=== PATIENT | female | born 1960 | race Caucasian/White ===

== ENCOUNTER 2017-01-21 11:26 | Observation (INO) ==
--- NOTE | 2017-01-21 12:24 | Emergency Department Note ---
Disposition Clinical Impression: Syncope and collapse Left thumb sprain Qualifiers: Encounter type: initial encounter Sprain of finger site: unspecified site Qualified Code(s): S63.602A - Unspecified sprain of left thumb, initial encounter Disposition: Admitted As Inpatient Condition: Good Time of Disposition: 13:53 General Adult HPI - General Chief complaint: ED Syncope Stated complaint: possible broken thumb Time Seen by Provider: 01/21/17 11:50 Source: patient Mode of arrival: ambulatory Limitations: no limitations Nursing Notes Reviewed: Yes Vital Signs Reviewed: Yes - History of Present Illness HPI Narrative: 56-year-old female history of Crohn's disease with resection presents with left thumb injury. Patient reports sustaining the left thumb injury yesterday 8 o' clock in the morning while sitting on the couch watching the news she had a cup of coffee when she awoke with coffee spilled on the floor and pain in her left thumb and a small laceration to the bridge of her nose. She had a total of 3 separate syncopal episodes most recent 1999 while laying in bed last night watching TV when passed out. She denies any chest pain, shortness of breath, nausea, vomiting or headache at that time. Denies any palpitations. Denies any history of syncope in the past. Denies any lightheadedness or positional changes that may have caused this. Denies any seizure history. These were all unwitnessed. She reports return of baseline when she awakens but is unaware of what occurred. She has been feeling more dizzy the past couple weeks which her family physician has been following with. She denies any history of cardiac ischemic disease, diabetes or any recent changes in medications. She admits to some left neck pain. Denies any anticoagulant or antiplatelet use. Patient has been more stress lately due to recent terminal diagnosis of her mother. She was recently enrolled in hospice is currently hospitalized. Pain Scale: 6 - Related Data Home Medications Medication Instructions Recorded Confirmed Adalimumab [Humira] 20 mg SQ Q2W 01/21/17 01/21/17 Cholecalciferol (Vitamin D3) 2,000 unit PO DAILY 01/21/17 01/21/17 [Vitamin D] FLUoxetine HCl [Prozac] 40 mg PO DAILY 01/21/17 01/21/17 Mercaptopurine [Purinethol] 50 mg PO DAILY 01/21/17 01/21/17 Omeprazole [PriLOSEC] 40 mg PO DAILY 01/21/17 01/21/17 Topiramate [Topamax] 100 mg PO DAILY 01/21/17 01/21/17 diazePAM [Valium] 10 mg PO TID PRN 01/21/17 01/21/17 Allergies Allergy/AdvReac Type Severity Reaction Status Date / Time infliximab [From Remicade] Allergy Anaphylaxis Verified 01/21/17 11:31 codeine AdvReac Vomiting Verified 01/21/17 11:31 All systems ED: reviewed and negative except as stated. Constitutional: Denies: fever, chills, weakness Cardiovascular: Reports: syncope. Denies: chest pain, palpitations, dyspnea on exertion, orthopnea Respiratory: Denies: cough, dyspnea Gastrointestinal: Denies: abdominal pain, nausea, vomiting Genitourinary: Denies: urgency, dysuria Musculoskeletal: Reports: neck pain. Denies: back pain Integumentary: Denies: rash, abrasion Neurological: Denies: headache, weakness, numbness Past Medical History - Past Medical History Attestation: Yes The following information was validated with the patient. Source: patient Medical history: Reports: arthritis, migraine, RA, other Surgical history: Reports: hysterectomy Psychiatric history: Reports: no psych history HUSBANDRY TECHNICIAN history: Reports: non-contributory - Social History Smoking Status: Current every day smoker Smokeless Tobacco Status: No Alcohol use: Reports: none Drug use: Reports: none Physical Exam - General Limitations: no limitations General appearance: alert, in no apparent distress - Head Head exam: atraumatic, normocephalic, normal inspection - Expanded Head Exam Head exam physicial: Present: abrasion (Along the bridge of the nose). Absent: raccoon eyes, Soares's sign, CSF rhinorrhea - Eye Eye exam: Present: normal appearance, PERRL, EOMI. Absent: scleral icterus - ENT ENT exam: normal exam, normal oropharynx, mucous membranes moist, TM's normal bilaterally - Neck Neck exam: Present: normal inspection, full ROM, trachea midline. Absent: meningismus - Expanded Neck Exam Neck exam focused ED: Present: paraspinal tenderness (Left). Absent: midline tenderness, anterior neck swelling - Chest Chest inspection: Present: normal inspection, symmetric chest wall rise. Absent : tenderness - Respiratory Respiratory exam: Present: normal lung sounds bilaterally. Absent: respiratory distress - Cardiovascular Cardiovascular exam: Present: regular rate, normal rhythm, normal heart sounds, other (No murmur on Valsalva). Absent: systolic murmur, diastolic murmur - Abdominal Exam Abdominal exam: Present: soft, Non-Tender, normal bowel sounds. Absent: tenderness, distention, guarding, rebound, rigidity - Expanded Upper Extremity Exam Shoulder exam: Present: normal inspection, full ROM. Absent: tenderness Arm exam: Present: normal inspection, full ROM. Absent: tenderness Elbow exam: Present: normal inspection, full ROM. Absent: tenderness Forearm/Wrist exam: Present: normal inspection, full ROM, pain with axial thumb loading. Absent: dislocation, tenderness over anatomical snuff box Hand exam: Present: normal inspection, full ROM, tenderness, swelling (Left base of the thumb). Absent: laceration, ecchymosis, deformity, dislocation, subungual hematoma Neuromotor exam: Normal: wrist extension, thumb opposition (pain), thumb IP flexion (pain), thumb adduction (pain), fingers 2-5 abduction Neurosensory exam: Normal: radial nerve, ulnar nerve, median nerve Vascular exam: Normal: capillary refill, radial pulse - Back Exam Back exam: Present: normal inspection, full ROM. Absent: tenderness, CVA tenderness (R), CVA tenderness (L) - Neurological Exam Neurological exam: Present: alert, oriented X3, CN II-XII intact, normal gait - Psychiatric Psychiatric exam: Present: normal affect, normal mood - Skin Skin exam: Present: warm, dry, intact, normal color Course Course Narrative: 56-year-old female presents with left thumb injury with episodes of syncope. Patient reports 3 syncopal episodes. Denies any prodromal symptoms such as lightheadedness, chest pain, shortness of breath, headache. Patient is currently asymptomatic at this time. No history of congestive heart failure. Patient is afebrile stable vital signs. She appears in no acute distress in his answer questions appropriately. Neurologic exam is normal without focal neural deficits. She does have a small laceration to the bridge of her nose. It does not require suture repair. No facial instability. TMs are normal. No obvious trauma along the face. There is mild left paraspinal tenderness no midline tenderness. Heart's regular rate and rhythm. No murmurs or auscultated at rest or with standing/valsalva. She has tenderness to the left thumb at the MCP. She has pain with axial loading. No snuffbox tenderness. She full range of motion to her thumb but is limited due to pain. Ulcers are equal bilaterally. Good capillary refill. Her symptoms do not suggest a seizure like etiology. BP normal. Will get basic blood work, EKG and x-ray of her left hand. Patient is in agreement with this plan. Tylenol for pain at this time. - Reevaluation(s) Reevaluation #1: Review of labs and imaging. No acute fracture. She continues to have tenderness along the MCP of the left thumb with swelling. No snuffbox tenderness. Will place an TICO wrap for comfort. Plan for admission for syncope unknown etiology. Will get a troponin, chest x-ray and additional labs. Patient is in agreement with this plan. Time: 13:20 - Consultations Consultation #1: Spoke with on-call hospitalist Dr. Lopez, ok to admit for syncope and left thumb sprain. No further orders at this time Time: 14:21 Consultation #2: Spoke with admitting hospitalist Dr. Lane, requests to order a MRI of brain while patient is in the ED because it will be performed faster. He will follow up with imaging on the floor. Patient did not have any vertigo or syncopal symptoms for me. Neurologic exam remains unremarkable. Time: 14:38 Vital Signs Temperature 97.4 F L 01/21/17 11:27 Pulse Rate 77 01/21/17 11:27 Respiratory Rate 16 01/21/17 11:27 Blood Pressure 136/89 01/21/17 11:27 O2 Sat by Pulse Oximetry 97 01/21/17 11:27 Temperature 97.4 F L 01/21/17 11:27 Pulse Rate 70 01/21/17 13:37 Respiratory Rate 18 01/21/17 14:27 Blood Pressure 108/79 01/21/17 14:27 O2 Sat by Pulse Oximetry 96 01/21/17 13:37 Oxygen Delivery Oxygen Delivery Room Air Medical Decision Making - Medical Records Medical records reviewed: Yes I reviewed the patient's medical records. - Lab Data Lab results reviewed: Yes I reviewed the patient's lab results. Result diagrams: 01/21/17 12:30 01/21/17 12:30 Lab Results 01/21/17 01/21/17 01/21/17 Range/Units 12:30 12:30 12:30 WBC 8.1 (4.3-11.1) K/mcL RBC 4.99 H (3.82-4.97) M/mcL Hgb 14.5 (11.5-15.4) g/dL Hct 41.9 (35.3-44.9) % MCV 84.0 (83.0-100.0) fL MCH 29.1 (28.0-33.3) pg MCHC 34.6 (31.6-35.5) g/dL RDW 13.6 (11.5-14.5) % Plt Count 258 (140-400) K/mcL MPV 9.7 (9.4-12.4) fL Immature Gran % 0.1 (0-4) % Seg Neutrophils % 60.3 % Lymphocytes % 32.2 % Monocytes % 5.5 % Eosinophils % 1.5 % Basophils % 0.4 % Neutrophils # 4.9 (1.6-8.9) K/mcL Lymphocytes # 2.6 (0.6-4.6) K/mcL Monocytes # 0.4 (0.0-1.3) K/mcL Eosinophils # 0.1 (0.0-0.6) K/mcL Basophils # 0.0 (0.0-0.2) K/mcL Sodium 138 (136-145) mEq/L Potassium 3.6 (3.5-4.5) mEq/L Chloride 107 (98-109) mEq/L Carbon Dioxide 19 (19-29) mEq/L BUN 10 (7-20) mg/dL Creatinine 0.76 (0.57-1.11) mg/dL Est GFR ( Amer) > 60 (> 60) Est GFR (Non-Af Amer) > 60 (> 60) BUN/Creatinine Ratio 13 (6-26) Glucose 167 H (70-99) mg/dL Calculated Osmolality 289 (280-300) Calcium 9.7 (8.6-10.8) mg/dL Magnesium 1.8 (1.6-2.6) mg/dL Troponin I (0-0.03) ng/mL TSH 0.639 (0.350-4.840) mcIU/mL 01/21/17 Range/Units 12:30 WBC (4.3-11.1) K/mcL RBC (3.82-4.97) M/mcL Hgb (11.5-15.4) g/dL Hct (35.3-44.9) % MCV (83.0-100.0) fL MCH (28.0-33.3) pg MCHC (31.6-35.5) g/dL RDW (11.5-14.5) % Plt Count (140-400) K/mcL MPV (9.4-12.4) fL Immature Gran % (0-4) % Seg Neutrophils % % Lymphocytes % % Monocytes % % Eosinophils % % Basophils % % Neutrophils # (1.6-8.9) K/mcL Lymphocytes # (0.6-4.6) K/mcL Monocytes # (0.0-1.3) K/mcL Eosinophils # (0.0-0.6) K/mcL Basophils # (0.0-0.2) K/mcL Sodium (136-145) mEq/L Potassium (3.5-4.5) mEq/L Chloride (98-109) mEq/L Carbon Dioxide (19-29) mEq/L BUN (7-20) mg/dL Creatinine (0.57-1.11) mg/dL Est GFR ( Amer) (> 60) Est GFR (Non-Af Amer) (> 60) BUN/Creatinine Ratio (6-26) Glucose (70-99) mg/dL Calculated Osmolality (280-300) Calcium (8.6-10.8) mg/dL Magnesium (1.6-2.6) mg/dL Troponin I 0.00 (0-0.03) ng/mL TSH (0.350-4.840) mcIU/mL - Radiology Data Radiology results reviewed: Yes I reviewed the patient's radiology results. Hand X-Ray 01/21/17 12:13 IMPRESSION: No acute osseous abnormality. D/ / 01/21/2017 12:40:41 Amena Ahmadi MD / [email or web address] Interpreting Provider: Amena Ahmadi MD Chest X-Ray 01/21/17 13:10 IMPRESSION: No acute cardiopulmonary disease. D/ / Brodie Bartlett MD / Brodie Bartlett MD Interpreting Provider: Brodie Bartlett MD - EKG Data EKG #1 EKG attestation: Yes I reviewed and interpreted this EKG. EKG results narrative: EKG performed 1237 normal sinus rhythm 75 bpm, good R-R wave progression, QRS 98 is incomplete right bundle branch block, there are no ST elevations or depressions, no T-wave inversions. Intervals are within normal limits HI interval 119 QRS 98 QT QTC 389 417. Compared to old EKG performed 03/22/2014 shows consistent findings of normal sinus rhythm with a poor R wave progression. No acute ischemic changes. No findings consistent with Brugada pattern, delta wave, LVH Attestation Statement - Attestation Attestation: I personally interviewed and examined this patient and my medical decision- making was reviewed with the ED Resident Physician, Dr. Corral I agree with the documented findings, disposition and treatment plan as described except to the extent set forth below. She has a 56-year-old white female who presents to the emergency department with a left thumb injury. Patient was triaged with a possible broken thumb injury, but actually the patient sustained this injury from her third syncopal episode at home. Patient has had 3 syncopal episodes in the last 24 hours, most recently she was sitting on her couch drinking cup of coffee, insists she was feeling completely fine and the next thing she knew she woke up on the floor and had dropped her coffee cup. There is no evidence of tongue biting, no incontinence, she sustained a superficial abrasion from her glasses across the bridge of her nose but did not sustain any other injuries in the fall. Patient had 2 prior syncopal episodes one while sitting and 1 while supine in bed also with no preceding or warning symptoms. Following episodes patient denied any chest pain, no palpitations, no shortness of breath, no headache or visual changes, no focal neurologic deficits, no abdominal pain nausea vomiting , no other associated symptoms. Patient admits to being under a great deal of stress at this time as her mother is here in the ICU and according to the patient is dying. She has been spending most her time in the hospital with her mother, and insists that she has not been sleeping well, not eating or drinking well, and has been very depressed. Patient denies any suicidal or homicidal ideations. Patient states "I am just not taking care of myself". Patient started had any prior syncope or evaluations for syncope. Agree patient's physical exam findings as documented. Patient's workup here in the ED was unremarkable. Plain film x-rays of the left thumb show no bony injury, patient has no snuffbox tenderness and no distal radius or ulnar tenderness. We will treat the patient for a thumb sprain and strain and place an Tico wrap to help with swelling. Tico wrap was in good position and patient neurovascularly intact following placement. At this time we discussed with the patient we are very concerned about these recurrent syncopal episodes which she has never experienced before. They were not caused by any pain, no positional changes, no contributing factors. Patient agrees with further evaluation. Discussed the case with the hospitalist who accepted patient for admission and requested that we order MRI imaging of the brain for them and they will follow up on those results. Patient denies any vertigo, she is a completely normal neuro exam on ED assessment, denies any headaches or visual changes. Patient has been hemodynamically stable throughout her course.
[2017-01-21 12:38] LABS: Basophils % 0.4 %; Eosinophils # 0.1 K/mcL (0.0-0.6); Eosinophils % 1.5 %; Hematocrit 41.9 % (35.3-44.9); Hemoglobin 14.5 g/dL (11.5-15.4); Immature Granulocytes % 0.1 % (0-4); Lymphocytes # 2.6 K/mcL (0.6-4.6); Lymphocytes % 32.2 %; Mean Corpuscular HGB Conc 34.6 g/dL (31.6-35.5); Mean Corpuscular Hemoglobin 29.1 pg (28.0-33.3); Mean Platelet Volume 9.7 fL (9.4-12.4); Monocytes # 0.4 K/mcL (0.0-1.3); Monocytes % 5.5 %; Neutrophils # 4.9 K/mcL (1.6-8.9); Platelet Count 258 K/mcL (140-400); Red Blood Count 4.99 M/mcL (3.82-4.97); Red Cell Distribution Width 13.6 % (11.5-14.5); Segmented Neutrophils % 60.3 %
[2017-01-21] MEDS ORDERED: Acetaminophen 325 MG TABLET PO ONE (12:43)
[2017-01-21 12:50] LABS: BUN/Creatinine Ratio 13 (6-26); Blood Urea Nitrogen 10 mg/dL (7-20); Calcium 9.7 mg/dL (8.6-10.8); Carbon Dioxide 19 mEq/L (19-29); Chloride 107 mEq/L (98-109); Glucose 167 mg/dL (70-99); Osmolality,Calculated 289 (280-300); Potassium 3.6 mEq/L (3.5-4.5); Sodium 138 mEq/L (136-145); eGFR For African Americans > 60 (> 60); eGFR For Non-African Americans > 60 (> 60)
[2017-01-21 13:22] LABS: Magnesium 1.8 mg/dL (1.6-2.6)
[2017-01-21 13:48] LABS: Thyroid Stimulating Hormone 0.639 mcIU/mL (0.350-4.840)
[2017-01-21] MEDS ORDERED: Naloxone 0.4 MG/ML INJ IVP PRN (15:21)
--- NOTE | 2017-01-21 15:21 | Internal Med History&Physical ---
Date of Encounter: 01/21/17 Time of Encounter: 15:19 Assessment and Plan (1) Syncope and collapse Current visit: Yes Status: Acute 56/female Admitted with 3 episodes of syncope and collapse. Has a background history of extensive Crohn's disease with multiple abdominal surgeries. Patient is stressed at home with the care for elderly parents and claims that her intake is very minimal. MRI scan: Multiple small vessel ischemic changes. Plan: -Admitted as observation -Cardiac diet. -Nothing by mouth from midnight. -Telemetry. -Intake/output chart. -Echocardiogram. -Ultrasound carotids. -Cycle troponin. -Close observation. Fall precaution- (2) Left thumb sprain Current visit: Yes Status: Acute Left thumb imaging did not reveal any osseous abnormality. Conservative management And anti-inflammatory and pain management Qualifiers: Encounter type: initial encounter Sprain of finger site: unspecified site Qualified Code(s): S63.602A - Unspecified sprain of left thumb, initial encounter (3) Crohns disease of small intestine Current visit: Yes Status: Acute Extensive history of Crohn's disease in the past. Patient is on immunosuppressants/immunomodulators Qualifiers: Digestive disease complication type: unspecified complication Qualified Code(s): K50.019 - Crohn's disease of small intestine with unspecified complications (4) DVT prophylaxis Current visit: Yes Status: Acute Hepalrin Medical decision making: This patient has [id number] risk of worsening, in spite of being on appropriate medication due to the underlying immunocompromised status Internal Medicine - H&P: HPI Chief complaint: syncopal episode ( multiple) Admitted From: Emergency Dept Plans for Post Hospital Care: Home History of present illness: PCP: Dr Faria GI : A specialist who visits [facility] Every Monday Brief PMH: Crohn's disease with extensive bowel resection, Migraine, Arthritis HPI: Patient came to emergency room for left thumb injury. Patient had this injury yesterday around 8 AM. Patient claims that she was sitting on the couch and was holding a coffee mug at that time she lost her consciousness and coffee spilled over. Patient had a minor injury on her bridge of the nose. Patient claims that since yesterday morning 8 AM today she came to emergency room today before noon , she had another 3 episodes of syncope and collapse. One of the episode where patient was sitting on a couch and watching TV and at that point she was fainted. The other 2 episodes were unwitnessed. Patient denies history of diabetes, hypertension, thyroid disease or stroke. Patient denies chest pain, palpitation, shortness of breath, nausea, vomiting, diarrhea or constipation. Course in the emergency room: Patient was evaluated in the emergency room. X- ray of the left thumb did not show any acute has she has abnormality. A wrap was recommended by emergency room physician. MRI scan of the brain was done. MRI scan of the brain was suggestive of a multiple small vessel ischemic changes. MRI did not reveal any acute stroke/hemorrhage. Reason for admission: Multiple syncopal episode along with collapse in last 24 hours with thumb injury. Family history: Noncontributory Past Med Surg Social Fam HX - Past Medical History Medical history: arthritis, migraine, RA, other Psychiatric history: no psych history - Past Surgical History Surgical History: hysterectomy - Social History Smoking Status: Current every day smoker Smokeless Tobacco Status: No Alcohol use: none Drug use: none Internal Medicine - H&P: Meds Adalimumab [Humira] 20 mg SQ Q2W 01/21/17 [History] Cholecalciferol (Vitamin D3) [Vitamin D] 2,000 unit PO DAILY 01/21/17 [History] FLUoxetine HCl [Prozac] 40 mg PO DAILY 01/21/17 [History] Mercaptopurine [Purinethol] 50 mg PO DAILY 01/21/17 [History] Omeprazole [PriLOSEC] 40 mg PO DAILY 01/21/17 [History] Topiramate [Topamax] 100 mg PO DAILY 01/21/17 [History] diazePAM [Valium] 10 mg PO TID PRN 01/21/17 [History] Allergies infliximab [From Remicade] Allergy (Verified 01/21/17 11:31) Anaphylaxis codeine Adverse Reaction (Verified 01/21/17 11:31) Vomiting All Systems PM: A 10-system review of systems was performed and is negative for pertinent findings except as documented above in the HPI. - Constitutional Constitutional: no chills, no fever(s), no night sweats - EENT Eyes: no change in vision, no discharge, no pain, no photophobia Ears: no ear discharge, no ear pain, no tinnitus Nose, mouth and throat: no dysphagia, no nasal discharge, no neck pain, no sore throat - Cardiovascular Cardiovascular ROS IM: no chest pain, no diaphoresis, no dyspnea, no lightheadedness, no palpitations, no syncope - Respiratory Respiratory: no cough, no dyspnea, no wheezing, no excessive phlegm production - Gastrointestinal Gastrointestinal: no abdominal pain, no diarrhea, no hematemesis, no hematochezia, no melena, no nausea, no vomiting - Genitourinary Genitourinary: no change in urinary stream, no dysuria, no flank pain, no hematuria - Musculoskeletal Musculoskeletal ROS IM: no numbness, no tingling - Integumentary Integumentary IM: no rash, no unusual bruising - Neurological Neurological ROS: no confusion, no convulsions, no focal weakness, no numbness, no tingling, no tremor(s) - Hematologic/Lymphatic Hematologic/Lymphatic: no easy bruising - Constitutional Vitals: Temp Pulse Resp BP Pulse Ox 97.7 F 61 20 109/75 96 01/21/17 15:11 01/21/17 15:11 01/21/17 15:11 01/21/17 15:11 01/21/17 15:11 - Head Head exam: Present: atraumatic, normocephalic - Eye Eye exam: Present: PERRL, conjuntiva pink, sclera anicteric Pupils: Present: PERRL - Neck Neck exam general surgery: Present: supple, trachea midline. Absent: lymphadenopathy - Respiratory Respiratory exam: Present: CTAB. Absent: accessory muscle use, rales, rhonchi, wheezes - Cardiovascular Cardiovascular exam: Present: RRR, +S1, +S2. Absent: diastolic murmur, gallop, rubs, systolic murmur - GI/Abdominal GI/Abdominal exam: Present: normal bowel sounds, soft, no peritoneal signs. Absent: distended, tenderness - Extremities Exam Extremities exam: Present: warm, radial pulses palpable and symetrical. Absent : calf tenderness, cyanotic, pedal edema - Neurological Exam Neurological exam: Present: CN II-XII intact, oriented X3, no focal deficits. Absent: pronater drift, facial droop, speech deficit - Skin Skin exam: Present: dry, intact Internal Med - H&P Results - Labs CBC & Chem 7: 01/21/17 12:30 01/21/17 12:30
[2017-01-21] MEDS ORDERED: ADALIMUMAB 20 MG SQ SCH (15:30)
[2017-01-21] MEDS: 0.9 % Sodium Chloride 1,000 ML IVC SCH (16:47)
[2017-01-21] MEDS: *HR* Heparin 5,000 UNIT/ML VIAL SQ SCH (16:47)
[2017-01-21 18:17] LABS: Bilirubin,Urine Negative (Negative); Blood,Urine Negative (Negative); Clarity,Urine Cloudy (Clear); Color,Urine Dark Yellow (Yellow); Glucose,Urine (UA) Normal (Normal); Ketones,Urine Negative (Negative); Leukocyte Esterase,Urine Moderate (Negative); Nitrite,Urine Negative (Negative); PH,Urine 5.5 pH Units (5.0-8.0); Protein,Urine Negative (Neg-Trace); Specific Gravity,Urine 1.017 (1.010-1.025); Urobilinogen,Urine Normal (Normal)
[2017-01-21 18:20] LABS: Bacteria,Urine None Seen per hpf (None-Few); Hyaline Casts,Urine None Seen per lpf (None-Few); RBC,Urine 0-3 per hpf (0-3); Squamous Epithelial Cell,Urine Many per lpf (None-Few)
[2017-01-21 18:21] LABS: Amphetamine Screen,Urine Negative ng/mL (Cutoff=1000); Barbiturate Screen,Urine Negative ng/mL (Cutoff=200); Benzodiazepines Screen,Urine Positive ng/mL (Cutoff=200); Cannabinoid Screen,Urine Positive ng/mL (Cutoff = 50); Cocaine Screen,Urine Negative ng/mL (Cutoff= 300); Opiate Screen,Urine Negative ng/mL (Cutoff=300); Phencyclidine Screen,Urine Negative ng/mL (Cutoff=25)
[2017-01-21] MEDS: Acetaminophen 325 MG TABLET PO PRN (20:00)
[2017-01-22 00:42] LABS: Basophils % 0.5 %; Eosinophils # 0.2 K/mcL (0.0-0.6); Eosinophils % 3.2 %; Hematocrit 37.1 % (35.3-44.9); Immature Granulocytes % 0.2 % (0-4); Lymphocytes # 3.5 K/mcL (0.6-4.6); Lymphocytes % 59.8 %; Mean Corpuscular HGB Conc 34.8 g/dL (31.6-35.5); Mean Corpuscular Hemoglobin 29.4 pg (28.0-33.3); Mean Corpuscular Volume 84.5 fL (83.0-100.0); Mean Platelet Volume 9.9 fL (9.4-12.4); Monocytes # 0.4 K/mcL (0.0-1.3); Monocytes % 6.3 %; Neutrophils # 1.8 K/mcL (1.6-8.9); Platelet Count 234 K/mcL (140-400); Red Blood Count 4.39 M/mcL (3.82-4.97); Red Cell Distribution Width 13.5 % (11.5-14.5)
[2017-01-22 00:43] LABS: Hemoglobin 12.9 g/dL (11.5-15.4)
[2017-01-22 00:56] LABS: Albumin 3.4 g/dL (3.5-5.0); Albumin/Globulin Ratio 1.2 (1.1-2.2); Alkaline Phosphatase 71 Units/L (38-126); Aspartate Amino Transferase 9 Units/L (5-34); BUN/Creatinine Ratio 17 (6-26); Bilirubin,Total 0.7 mg/dL (0.2-1.2); Blood Urea Nitrogen 12 mg/dL (7-20); Carbon Dioxide 23 mEq/L (19-29); Chloride 107 mEq/L (98-109); Globulin 2.9 g/dL (2.4-3.5); Glucose 99 mg/dL (70-99); Magnesium 1.8 mg/dL (1.6-2.6); Osmolality,Calculated 290 (280-300); Phosphorous 4.8 mg/dL (2.3-4.7); Potassium 3.3 mEq/L (3.5-4.5); Sodium 140 mEq/L (136-145); Total Protein 6.3 g/dL (6.0-8.3); Triglycerides 266 mg/dL (< 150); eGFR For African Americans > 60 (> 60); eGFR For Non-African Americans > 60 (> 60)
[2017-01-22 00:57] LABS: Alanine Aminotransferase < 6 Units/L (0-55); Chol/HDL Ratio 3.1 (0-4.9); Cholesterol 174 mg/dL (< 200); HDL Cholesterol 57 mg/dL (40-59); LDL Cholesterol,Calculated 64 mg/dL (0-99)
[2017-01-22] MEDS: *HR* Heparin 5,000 UNIT/ML VIAL SQ SCH ×2 (05:54→17:04)
[2017-01-22] MEDS: 0.9 % Sodium Chloride 1,000 ML IVC SCH ×2 (07:29→22:41)
[2017-01-22] MEDS: Acetaminophen 325 MG TABLET PO PRN (09:00)
[2017-01-22] MEDS: FLUoxetine 20 MG CAPSULE PO SCH (09:00)
[2017-01-22] MEDS: Topiramate 100 MG TABLET PO SCH (09:01)
--- NOTE | 2017-01-22 09:58 | Electrocardiograph Report ---
[address] [address] Test Date: 2017-01-21 Pat Name: Yue Harrell Department: 105 Room: 3B11 Gender: F Clinical Lab Scientist: : 1960 Requested By: Philip Corral Order Number: [id number] Reading MD: Adilene Lazcano Measurements Intervals [place] Rate: 75 P: 3 TX: 119 QRS: -7 QRSD: 98 T: 30 QT: 389 QTc: 417 Interpretive Statements SINUS RHYTHM WITH SHORT TX INTERVAL LOW QRS VOLTAGE IN PRECORDIAL LEADS INCOMPLETE RIGHT BUNDLE BRANCH BLOCK Electronically Signed On 01-22-2017 9:56:32 EDT by Adilene Lazcano
--- NOTE | 2017-01-22 15:33 | Internal Med Progress Note ---
Date of Encounter: 01/22/17 Time of Encounter: 15:31 - Assessment and plan (1) Syncope and collapse Current Visit: Yes Status: Acute Assessment and plan: Patient is admitted for syncope and collapse. MRI brain: Multiple small diffuse ischemic vessel changes. Echocardiogram/ultrasound carotid: Pending (2) Left thumb sprain Current Visit: Yes Status: Acute Assessment and plan: Left thumb is presently wrapped up. Patient denies any pain. Qualifiers: Encounter type: initial encounter Sprain of finger site: unspecified site Qualified Code(s): S63.602A - Unspecified sprain of left thumb, initial encounter (3) Crohns disease of small intestine Current Visit: Yes Status: Acute Assessment and plan: No constipation/diarrhea. Qualifiers: Digestive disease complication type: unspecified complication Qualified Code(s): K50.019 - Crohn's disease of small intestine with unspecified complications (4) DVT prophylaxis Current Visit: Yes Status: Acute Assessment and plan: Heparin - Subjective Interval history: Seen and examined. Chart reviewed. Patient is feeling much better as compared to yesterday. In past 24 hours she denied any syncopal episode/near collapse - Constitutional Vitals: Temp Pulse Resp BP Pulse Ox 97.5 F L 61 14 102/65 96 01/22/17 15:17 01/22/17 15:17 01/22/17 15:17 01/22/17 15:17 01/22/17 15:17 General appearance: Present: A&O X 3, pleasant, no acute distress, answers questions appropriately - Head Head exam: Present: atraumatic, normocephalic - Eye Eye exam: Present: PERRL, conjuntiva pink, sclera anicteric Pupils: Present: PERRL - Neck Neck exam general surgery: Present: supple, trachea midline. Absent: lymphadenopathy - Respiratory Respiratory exam: Present: CTAB. Absent: accessory muscle use, rales, rhonchi, wheezes - Cardiovascular Cardiovascular exam: Present: RRR, +S1, +S2. Absent: diastolic murmur, gallop, rubs, systolic murmur - GI/Abdominal GI/Abdominal exam: Present: normal bowel sounds, soft, no peritoneal signs. Absent: distended, tenderness - Extremities Exam Extremities exam: Present: warm, radial pulses palpable and symetrical. Absent : calf tenderness, cyanotic, pedal edema - Neurological Exam Neurological exam: Present: CN II-XII intact, oriented X3, no focal deficits. Absent: pronater drift, facial droop, speech deficit - Skin Skin exam: Present: dry, intact Internal Medicine: Result - Labs CBC & Chem 7: 01/22/17 00:31 01/22/17 00:31 Labs: Short CBC 01/22/17 Range/Units 00:31 WBC 5.9 (4.3-11.1) K/mcL Hgb 12.9 D (11.5-15.4) g/dL Hct 37.1 (35.3-44.9) % Plt Count 234 (140-400) K/mcL Neutrophils # 1.8 (1.6-8.9) K/mcL BMP 01/22/17 00:31 Sodium 140 Potassium 3.3 L Chloride 107 Carbon Dioxide 23 BUN 12 Creatinine 0.72 Glucose 99 Calcium 9.0 Cardiac Enzymes 01/21/17 01/22/17 Range/Units 18:04 00:31 Troponin I 0.00 0.00 (0-0.03) ng/mL Liver Function 01/22/17 Range/Units 00:31 Total Bilirubin 0.7 (0.2-1.2) mg/dL AST 9 (5-34) Units/L ALT < 6 (0-55) Units/L Alkaline Phosphatase 71 (38-126) Units/L Albumin 3.4 L (3.5-5.0) g/dL Urine 01/21/17 Range/Units 16:35 Urine Color Dark Yellow (Yellow) Urine Clarity Cloudy A (Clear) Urine pH 5.5 (5.0-8.0) pH Units Ur Specific [place] 1.017 (1.010-1.025) Urine Protein Negative (Neg-Trace) mg/dL Urine Glucose (UA) Normal (Normal) mg/dL - Impressions Impressions Brain MRI 01/21/17 14:41 IMPRESSION: Multifocal small-vessel ischemic changes bilaterally without acute infarct, mass or hemorrhage. D/ / Guille Foley / Guille Foley Interpreting Provider: Guille Foley Consult Discharge Plan - Plan Referrals: Nathan Trejo MD [Primary Care Provider] -
[2017-01-23] MEDS: *HR* Heparin 5,000 UNIT/ML VIAL SQ SCH (05:45)
[2017-01-23] MEDS: FLUoxetine 20 MG CAPSULE PO SCH (08:19)
[2017-01-23] MEDS: Topiramate 100 MG TABLET PO SCH (08:19)
--- NOTE | 2017-01-23 13:55 | Discharge Summary ---
<Juvencio Guerrier - Last Filed: 01/23/17 17:01> Date of Encounter: 01/23/17 Time of Encounter: 13:51 - Discharge Diagnosis (1) Syncope and collapse Priority: Primary Status: Acute (2) Crohns disease of small intestine Priority: Secondary Status: Chronic Qualifiers: Digestive disease complication type: unspecified complication Qualified Code(s): K50.019 - Crohn's disease of small intestine with unspecified complications (3) DVT prophylaxis Priority: Secondary Status: Acute - Discharge Medications Home Medications: Adalimumab [Humira] 20 mg SQ Q2W 01/21/17 [History] Cholecalciferol (Vitamin D3) [Vitamin D] 2,000 unit PO DAILY 01/21/17 [History] FLUoxetine HCl [Prozac] 40 mg PO DAILY 01/21/17 [History] Mercaptopurine [Purinethol] 50 mg PO DAILY 01/21/17 [History] Omeprazole [PriLOSEC] 40 mg PO DAILY 01/21/17 [History] Topiramate [Topamax] 100 mg PO DAILY 01/21/17 [History] diazePAM [Valium] 10 mg PO TID PRN 01/21/17 [History] Mercaptopurine 100 mg PO DAILY 01/22/17 [History] Allergies/Adverse Reactions: Allergies infliximab [From Remicade] Allergy (Verified 01/21/17 11:31) Anaphylaxis codeine Adverse Reaction (Verified 01/21/17 11:31) Vomiting Procedures/tests Complete & Pending: Procedures Performed prior 72 hours Category Date Time Status MR head/brain wo con [MR] Stat MRI 01/21/17 14:41 Completed EV carotid duplex imaging BI Routine Y 01/23/17 08:50 Completed EV echocardiogram Routine Y 01/23/17 08:50 Completed Date of admission: 01/21/17 14:09 Primary care physician: Nathan Trejo Consults: 01/21/17 15:25 Consult to Physical Therapy [CONS] Routine Comment: Evaluate, develop and implement POC Reason for Consult: multipe syncope 01/21/17 15:26 Consult to Occupational Therapy [CONS] Routine Comment: Evaluate, develop and implement POC Reason for Consult: multiple syncope Discharging clinician: Juvencio Guerrier Anticipated date of discharge: 01/23/17 - Patient Status Disposition: Home, Self-Care Condition: Good Overall status at discharge: patient is back to baseline - Ambulatory Orders Ambulatory Orders: SP exercise stress ECG Time Frame: 3 Days, Facility: [facility], Location: Cardiopulmonary Svc - Discharge Instructions Instructions: Syncope (DC) Follow Up With: Nathan Trejo MD [Primary Care Provider] - 01/30/17 10:00 am Yvon Sharp CNP [Advanced Practice Nurse] - Additional Instructions: 1. Follow-up with your primary care provider in the next 3-5 days 2. Take all prescriptions as prescribed, any concerns or questions contact her primary care provider. 3. Return to the emergency department if: Developed symptoms of lightheadedness , dizziness passing out, syncope, chest pain chest pressure, or any other concerning medical signs or symptoms. Follow-up with [facility] for all patients stress test. - Diet and Activity Activity: as per physical therapy Diet: advance to your usual diet Interval History: Miss Harrell a 56-year-old female who presented to the emergency department on after a left thumb injury when she was sitting on her couch and fell over after losing consciousness. She has a significant past medical history of arthritis, migraines, Crohn's disease. She was admitted to general medical floor after an x-ray of her hand and thumb did not show any abnormalities. She underwent an MRI scan of the brain which was negative for any acute bleeding or masses but did demonstrate some multiple small vessel ischemic changes. Orthostatic blood pressures were negative, chest x-ray did not demonstrate any acute cardiopulmonary disease. Echocardiogram demonstrated left ventricle ejection fraction 55-60%, normal left jugular size wall thickness and function. Mild left ventricular diastolic dysfunction. Normal right ventricular structure and function. No evidence of pulmonary hypertension and no significant valvular dysfunction. Patient is placed on cardiac monitoring without any events through her inpatient stay. Carotid Dopplers were ordered. She remained stable throughout her inpatient stay and was seen and examined on 01/23/2017 and deemed stable for discharge with close follow-up with her primary care provider. She was also recommended to have a cardiac stress test with follow-up with [facility]. Hospital course: Ms. Harrell is a 56 year old female - Time Spent with Patient Total time spent providing and/or coordinating discharge services: - Constitutional Vitals: Temp Pulse Resp BP Pulse Ox 97.6 F 62 16 143/72 97 01/23/17 10:50 01/23/17 10:50 01/23/17 10:50 01/23/17 10:50 01/23/17 10:50 General appearance: Present: A&O X 3, pleasant, no acute distress, answers questions appropriately Exam: General: Patient alert, awake, oriented 3, interactive, in no acute distress HEENT: Normocephalic, atraumatic, pupils equal reactive to light, nasal cavity patent and open septum median position, oral mucosa moist, uvula midline, neck supple trachea midline no palpable lymphadenopathy, no thyromegaly. Chest: Symmetric bilateral correlating with respiratory effort, effort nonlabored. Cardiac: Regular rate and rhythm, positive S1, S2, no bruits appreciated bilateral carotids, Radial pulses 2+ bilateral, posterior tibial and dorsal pedal pulses 2+ bilateral. Respiratory: Clear to auscultation all lung german Abdomen: Soft, nontender, positive bowel sounds, no palpable masses appreciated on examination Extremities: Symmetric bilateral, no erythema or edema, patient moving all 4 extremities spontaneously. Neurologic: No focal deficits appreciated on examination. Face symmetric, muscle strength symmetric bilateral upper and lower extremities. <José Lane P - Last Filed: 01/23/17 17:36> Date of Encounter: 01/23/17 - Discharge Diagnosis (1) Syncope and collapse Status: Acute (2) Left thumb sprain Status: Acute Qualifiers: Encounter type: initial encounter Sprain of finger site: unspecified site Qualified Code(s): S63.602A - Unspecified sprain of left thumb, initial encounter (3) Crohns disease of small intestine Status: Chronic Qualifiers: Digestive disease complication type: unspecified complication Qualified Code(s): K50.019 - Crohn's disease of small intestine with unspecified complications (4) DVT prophylaxis Status: Acute Procedures/tests Complete & Pending: Procedures Performed prior 72 hours Category Date Time Status MR head/brain wo con [MR] Stat MRI 01/21/17 14:41 Completed EV carotid duplex imaging BI Routine Y 01/23/17 08:50 Completed EV echocardiogram Routine Y 01/23/17 08:50 Completed Date of admission: 01/21/17 14:09 Primary care physician: Nathan Trejo Consults: 01/21/17 15:25 Consult to Physical Therapy [CONS] Routine Comment: Evaluate, develop and implement POC Reason for Consult: multipe syncope 01/21/17 15:26 Consult to Occupational Therapy [CONS] Routine Comment: Evaluate, develop and implement POC Reason for Consult: multiple syncope Hospital course: Ms. Harrell is a 56 year old female - Time Spent with Patient Total time spent providing and/or coordinating discharge services: - Constitutional Vitals: Temp Pulse Resp BP Pulse Ox 98 F 70 17 112/72 96 01/23/17 15:04 01/23/17 15:04 01/23/17 15:04 01/23/17 15:04 01/23/17 15:04 - Attending Attestation I examined this patient and my medical decision-making was reviewed with the CIRCUIT WALKER/PA/Advanced Practice Nurse/Resident Physician. I agree with the documented findings, disposition and treatment plan as described except to the extent set forth below. out patient stress test patient's mother is presently under hospice care and patient requested to go home.
[2017-01-23 15:09] VITALS: BP 112/72
--- NOTE | 2017-01-24 19:20 | Carotid Imaging Report ---
Carotid Duplex Patient Name:Yue Harrell Order Number:[id number] Procedure Date:01/23/2017 Date:8Age:56 yrs Gender:Female Location:[facility] Room #: 3B11 Wire Transfer Clerk:Daysi Peres Referring MD:José Lane MD credit or loans officer:Nathan Trejo MD Reading MD:Devendra Meyer MD Risk Factors Yes/No Hypertension No Diabetes No Smoking Current Yes Hypercholesterolemia No Hx of TIA No Impressions: Findings: Bilateral carotid system has nonstenotic plaque. Recommendations: After imaging the patient returned to their room. Findings Carotid Duplex: Right: The right proximal common carotid artery has a PSV of 87 cm/s and a EDV of 25 cm/s. The right mid common carotid artery has a PSV of 77 cm/s and a EDV of 26 cm/s. The right distal common carotid artery has a PSV of 70 cm/s and a EDV of 22 cm/s. There is nonstenotic plaque in the right bifurcation with a PSV of 57 cm/s and a EDV of 16 cm/s. There is smooth heterogeneous plaque. There is nonstenotic plaque in the right proximal internal carotid artery with a PSV of 54 cm/s and a EDV of 24 cm/s. There is smooth heterogeneous plaque. The right mid internal carotid artery has a PSV of 86 cm/s and a EDV of 37 cm/s. The right distal internal carotid artery has a PSV of 101 cm/s and a EDV of 39 cm/s. The right eca has a PSV of 75 cm/s and a EDV of 14 cm/s. The right vertebral artery has a PSV of 52 cm/s and a EDV of 18 cm/s. Left: The left proximal common carotid artery has a PSV of 87 cm/s and a EDV of 30 cm/s. The left mid common carotid artery has a PSV of 78 cm/s and a EDV of 28 cm/s. The left distal common carotid artery has a PSV of 66 cm/s and a EDV of 27 cm/s. The left bifurcation has a PSV of 52 cm/s and a EDV of 16 cm/s. The left proximal internal carotid artery has a PSV of 56 cm/s and a EDV of 16 cm/s. The left mid internal carotid artery has a PSV of 58 cm/s and a EDV of 15 cm/s. The left distal internal carotid artery has a PSV of 55 cm/s and a EDV of 15 cm/s. The left eca has a PSV of 65 cm/s and a EDV of 23 cm/s. The left vertebral artery has a PSV of 43 cm/s and a EDV of 18 cm/s. Carotid Results Right PSV EDV Assessment Proximal CCA 87 25 Normal Mid CCA 77 26 Normal Distal CCA 70 22 Normal Bifurcation 57 16 Non Stenotic Plaque Proximal ICA 54 24 Non Stenotic Plaque Mid ICA 86 37 Normal Distal ICA 101 39 Normal ECA 75 14 Normal Vertebral Artery 52 18 Normal Left PSV EDV Assessment Proximal CCA 87 30 Normal Mid CCA 78 28 Normal Distal CCA 66 27 Normal Bifurcation 52 16 Normal Proximal ICA 56 16 Normal Mid ICA 58 15 Normal Distal ICA 55 15 Normal ECA 65 23 Normal Vertebral Artery 43 18 Normal Ratio's Right ICA/CCA Ratio: 1.30 ICA/CCA Values: 101/77 Left ICA/CCA Ratio: 0.74 ICA/CCA Values: 58/78 Updated by Devendra Meyer MD on 01/24/2017 7:15:59 PM electronically signed on 01/24/2017 7:16:11 PM with status of Final
== END 2017-01-23 18:07 | disposition home or self-care (01) ==
LOC: 3BNU 11:26 → EMEROO 11:26 → 3BNU 15:01
PROVIDERS: ADMIT Internal Medicine; ATTEND Registered Nurse